=== PATIENT | female | born 1935 | race Caucasian/White ===

== ENCOUNTER → 2018-02-14 | Outpatient (CLI) | payer MEDICARE ==
[~2018-02-14] MED LIST: ASCO-96 PO; ATEN25TA PO; ATEN50TA41 HOMEMEDPO; BACL-19 PO; BENA10TA2 PO; BENA20TA2 HOMEMEDPO; BENA20TA2 PO; BISA10SU65 PR; CALC-171 PO; DOCU-131 PO; GARL10002 PO; HYDR-3237 PO; HYDR12.53 HOMEMEDPO; HYDR12.53 PO; HYDR12.58 PO; IBUP-1223 PO; LACT1CAP4 PO; LEVO25TA2 HOMEMEDPO; LEVO25TA4 PO; LEVO50TA5 PO; TRAM50TA2 PO; VITAMIN B12 PO
[2018-02-14 13:00] LABS: MEAN CORPUSCULAR HEMOGLOBIN 32.2 pg (27.0-34.8); MEAN CORPUSCULAR HGB CONC 34.6 g/dL (32.4-35.8); MEAN CORPUSCULAR VOLUME 93.1 fL (80-100); MEAN PLATELET VOLUME 8.9 fL (7.4-10.4); PLATELET COUNT 165 x10^3/uL (130-400); RED BLOOD COUNT 4.26 x10^6/uL (3.82-5.3)
[2018-02-14 13:03] LABS: INTERNATIONAL NORMALIZED RATIO 0.97 (0.93-1.1)
[2018-02-14 13:08] LABS: ALANINE AMINOTRANSFERASE 15 U/L (12-78); ALBUMIN 4.2 g/dL (3.4-5.0); ANION GAP 9 mmol/L (5-15); CHLORIDE 104 mmol/L (98-107)
[2018-02-14 13:10] LABS: ALKALINE PHOSPHATASE 50 U/L (45-117); BILIRUBIN,TOTAL 0.4 mg/dL (0.2-1.0); TOTAL PROTEIN 7.6 g/dL (6.4-8.2)
[2018-02-14 13:54] LABS: HEMOGLOBIN A1C 5.6 % (4.2-6.3)
[2018-02-14 14:04] LABS: MD YES
[2018-02-14 14:06] LABS: BAND#(MANUAL) 0.06 x10^3/uL; BANDS%(MANUAL) 1 % (0-7); LYMPH#(MANUAL) 1.79 x10^3/uL (1-3.4); LYMPHS% (MANUAL) 32 % (22-44); MONOS#(MANUAL) 0.17 x10^3/uL (0.3-2.7); MONOS% (MANUAL) 3 % (2-9); SEG#(MANUAL) 3.58 x10^3/uL (1.8-6.8); SEGS% (MANUAL) 64 % (42-75)
[2018-02-14 14:07] LABS: <PLATELET ESTIMATE> ADEQUATE; <PLT MORPHOLOGY> NORMAL PLT MORPH; <RBC MORPHOLOGY> NORMAL
== END | disposition home or self-care (01) ==
LOC: STAR 11:16
PROVIDERS: ATTEND Orthopaedic Surgery
DX: Z01.818 Encounter for other preprocedural examination (principal); M16.11 Unilateral primary osteoarthritis, right hip; R94.31 Abnormal electrocardiogram [ECG] [EKG]
CPT/HCPCS: 36415; 80053; 83036; 85025; 85610; 85730; 87081; 93005

== ENCOUNTER 2018-02-24 09:08 | Inpatient (IN) | payer MEDICARE ==
[2018-02-14 11:51] VITALS: BP 143/81
[~2018-02-24] VITALS: Ht 152.4 cm; Wt 62.1 kg
[~2018-02-24 09:08] MED LIST changes: +EPINEPHRINE 1 MG/ML, 1ML ONE; +KETOROLAC 60 MG/2 ML ONE; +ROPIvacaine/PF 0.5%, 20 ML ONE; +SODIUM CHLORIDE 0.9% 100 ML ONE; +TRANEXAMIC ACID 100 MG/ML, 10ML ONE
[2018-02-24] MEDS ORDERED: LACTATED RINGERS 1,000 ML IV SCH (09:20)
[2018-02-24] MEDS ORDERED: FENTANYL PF 250 MCG/5ML ONE ×2 (09:22→11:09)
[2018-02-24] MEDS ORDERED: DEXAMETHASONE 4 MG/ML, 1ML ONE (09:25)
[2018-02-24] MEDS ORDERED: ONDANSETRON 2MG/ML, 2ML ONE (09:25)
[2018-02-24] MEDS ORDERED: CEFAZOLIN 1,000 MG ONE (09:25)
[2018-02-24] MEDS ORDERED: PROPOFOL 10 MG/ML, 20ML ONE (09:25)
[2018-02-24] MEDS ORDERED: GABAPENTIN 300 MG CAPSULE PO ONE (10:00)
[2018-02-24] MEDS ORDERED: ACETAMINOPHEN 500 MG TABLET ONE (10:10)
[2018-02-24] MEDS ORDERED: GABAPENTIN 300 MG CAPSULE ONE (10:11)
[2018-02-24] MEDS ORDERED: VANCOMYCIN PER PHARMACY MC ONE (10:17)
[2018-02-24] MEDS ORDERED: ACETAMINOPHEN 650 MG/20.3 ML UDC PO PRN (10:30)
[2018-02-24] MEDS ORDERED: BISACODYL 10 MG SUPP PR PRN (10:30)
[2018-02-24] MEDS ORDERED: SCOPOLAMINE PATCH, 1.5MG PATCH.TD72 TD ONE (10:30)
[2018-02-24] MEDS ORDERED: SENNA/DOCUSATE TABLET PO PRN (10:30)
[2018-02-24] MEDS ORDERED: ONDANSETRON 2MG/ML, 2ML IV PRN (10:30)
[2018-02-24] MEDS ORDERED: HYDROcodone/APAP 5/325 TABLET PO PRN (10:30)
[2018-02-24] MEDS ORDERED: DIPHENHYDRAMINE 50 MG CAPSULE PO PRN (10:30)
[2018-02-24] MEDS ORDERED: ONDANSETRON 4 MG TABLET PO PRN (10:30)
[2018-02-24] MEDS ORDERED: ZOLPIDEM 5MG TABLET PO PRN (10:30)
[2018-02-24] MEDS ORDERED: MAGNESIUM HYDROXIDE 8%, 30ML UDC PO PRN (10:30)
[2018-02-24] MEDS ORDERED: hydrALAzine 20 MG/ML, 1ML IV PRN (11:00)
[2018-02-24] MEDS ORDERED: ACETAMINOPHEN 500 MG TABLET PO ONE (11:00)
[2018-02-24] MEDS ORDERED: morphine SULFATE 10 MG/ML, 1ML IV PRN (11:00)
[2018-02-24] MEDS ORDERED: ONDANSETRON 2MG/ML, 2ML IVPush PRN (11:00)
[2018-02-24] MEDS ORDERED: LABETALOL 5MG/ML, 20ML IV PRN (11:00)
[2018-02-24] MEDS ORDERED: VANCOMYCIN 1,100 MG in SODIUM CHLORIDE 0.9% 250 ML IV ONE (11:00)
[2018-02-24] MEDS ORDERED: HYDROcodone/APAP 7.5-325MG/15ML UDC PO PRN (11:00)
[2018-02-24] MEDS ORDERED: OXYcodone 5 MG/5 ML ORAL.SOL UDC PO PRN (11:00)
[2018-02-24] MEDS ORDERED: VANCOMYCIN 1,000 MG ONE (11:24)
[2018-02-24] MEDS: FENTANYL PF 100 MCG/2ML IV PRN ×2 (12:00→12:15)
[2018-02-24] MEDS ORDERED: FENTANYL PF 100 MCG/2ML ONE (12:01)
[2018-02-24] MEDS ORDERED: ACETAMINOPHEN 650 MG/20.3 ML UDC ONE (12:01)
[2018-02-24] MEDS ORDERED: OXYcodone 5 MG/5 ML ORAL.SOL UDC ONE (12:01)
[2018-02-24] MEDS ORDERED: LORazepam 2 MG/ML, 1ML ONE (12:37)
[2018-02-24] MEDS ORDERED: LORazepam 2 MG/ML, 1ML IV ONE (13:00)
[2018-02-24 13:35] VITALS: BP 125/57
[2018-02-24] MEDS: ASPIRIN 81 MG TABLET EC PO SCH (18:26)
[2018-02-24] MEDS: CEFAZOLIN PMX 2GM/50ML 50 ML IVPB SCH (18:27)
[2018-02-24] MEDS: NS + 20MEQ KCL 1,000 ML IV SCH (18:27)
[2018-02-24 18:50] VITALS: BP 115/54
[2018-02-24] MEDS: OXYcodone IR 5MG TABLET PO PRN (21:05)
[2018-02-24] MEDS: DOCUSATE 100 MG CAPSULE PO SCH (21:06)
[2018-02-25 00:15] VITALS: BP 94/50
[2018-02-25] MEDS: OXYcodone IR 5MG TABLET PO PRN ×6 (00:23→22:09)
[2018-02-25] MEDS: CEFAZOLIN PMX 2GM/50ML 50 ML IVPB SCH (02:48)
[2018-02-25 04:05] VITALS: BP 100/57
[2018-02-25] MEDS: LEVOTHYROXINE 25 MCG TABLET PO SCH (04:56)
[2018-02-25] MEDS ORDERED: DEXAMETHASONE 4 MG/ML, 1ML IVPush SCH (06:00)
[2018-02-25] MEDS: NS + 20MEQ KCL 1,000 ML IV SCH ×2 (06:06→19:26)
[2018-02-25] MEDS: ASPIRIN 81 MG TABLET EC PO SCH ×2 (06:35→18:10)
[2018-02-25] MEDS: ATENOLOL 25 MG TABLET PO SCH (07:00)
[2018-02-25] MEDS: BENAZEPRIL 20 MG TABLET PO SCH (07:00)
[2018-02-25] MEDS: HYDROCHLOROTHIAZIDE 12.5 MG CAPSULE PO SCH (07:00)
[2018-02-25] MEDS: DOCUSATE 100 MG CAPSULE PO SCH ×2 (09:00→20:23)
[2018-02-25 09:01] VITALS: BP 102/61
[2018-02-25 13:17] VITALS: BP 96/56
[2018-02-25 19:16] VITALS: BP 110/62
[2018-02-25] MEDS ORDERED: HYDROmorphone 2 MG/ML, 1ML ONE ×2 (19:16→23:41)
[2018-02-25] MEDS: HYDROmorphone 1 MG/ML, 1ML IV PRN ×2 (19:26→23:43)
[2018-02-26] MEDS: OXYcodone IR 5MG TABLET PO PRN ×5 (02:18→21:26)
[2018-02-26 02:21] VITALS: BP 125/45
[2018-02-26] MEDS ORDERED: HYDROmorphone 2 MG/ML, 1ML ONE (05:14)
[2018-02-26] MEDS: LEVOTHYROXINE 25 MCG TABLET PO SCH (05:17)
[2018-02-26] MEDS: HYDROmorphone 1 MG/ML, 1ML IV PRN (06:09)
[2018-02-26] MEDS: ASPIRIN 81 MG TABLET EC PO SCH ×2 (06:09→17:00)
[2018-02-26 06:38] VITALS: BP 117/64
[2018-02-26] MEDS: BENAZEPRIL 20 MG TABLET PO SCH (06:39)
[2018-02-26] MEDS: HYDROCHLOROTHIAZIDE 12.5 MG CAPSULE PO SCH (06:39)
[2018-02-26] MEDS: ATENOLOL 25 MG TABLET PO SCH (06:40)
[2018-02-26] MEDS: NS + 20MEQ KCL 1,000 ML IV SCH ×2 (06:40→20:26)
[2018-02-26 07:43] VITALS: BP 111/69
[2018-02-26] MEDS: DOCUSATE 100 MG CAPSULE PO SCH ×2 (09:49→21:26)
[2018-02-26 12:19] VITALS: BP 108/49
[2018-02-26 19:35] VITALS: BP 105/59
[2018-02-27] MEDS: OXYcodone IR 5MG TABLET PO PRN ×4 (01:38→13:38)
[2018-02-27 02:44] VITALS: BP 119/63
[2018-02-27] MEDS: LEVOTHYROXINE 25 MCG TABLET PO SCH (05:10)
[2018-02-27] MEDS: BENAZEPRIL 20 MG TABLET PO SCH (06:46)
[2018-02-27] MEDS: ASPIRIN 81 MG TABLET EC PO SCH (06:46)
[2018-02-27] MEDS: ATENOLOL 25 MG TABLET PO SCH (06:52)
[2018-02-27] MEDS: HYDROCHLOROTHIAZIDE 12.5 MG CAPSULE PO SCH (06:52)
[2018-02-27 06:59] VITALS: BP 111/68
[2018-02-27] MEDS: NS + 20MEQ KCL 1,000 ML IV SCH (08:32)
[2018-02-27] MEDS ORDERED: ASPI-621 PO (08:53)
[2018-02-27] MEDS ORDERED: ONDA4TAB7 PO (08:53)
[2018-02-27] MEDS ORDERED: MELO7.5T31 PO (08:53)
[2018-02-27] MEDS ORDERED: TRAM50TA2 PO (08:53)
[2018-02-27] MEDS ORDERED: OXYC5CAP2 PO (08:53)
[2018-02-27] MEDS: DOCUSATE 100 MG CAPSULE PO SCH (09:00)
[2018-02-27 12:30] VITALS: BP 95/54
== END 2018-02-27 15:45 | DRG 470 ==
LOC: ORIP 09:08 → 4NOR 13:24
PROVIDERS: ADMIT Orthopaedic Surgery; ATTEND Orthopaedic Surgery
PROC: 0SR906Z Replacement of Right Hip Joint with Oxidized Zirconium on Polyethylene Synthetic Substitute, Open Approach (ICD-10-PCS; principal; 2018-02-24 10:30)
DX: M16.11 Unilateral primary osteoarthritis, right hip (principal); M84.451A Pathological fracture, right femur, initial encounter for fracture; M81.0 Age-related osteoporosis without current pathological fracture; Z79.82 Long term (current) use of aspirin
CPT/HCPCS: 36415; 72170; 76001; 85014; 85018; 86850; 86900; C1713; J0171; J0690; J1100; J1170; J1885; J2405; J2704; J2795; J3010; J3370; J3480; C1776; J2060; J7120

== ENCOUNTER 2018-05-20 11:26 | Inpatient (IN) | payer MEDICARE ==
[~2018-05-20] VITALS: Ht 154.9 cm; Wt 65.4 kg
[~2018-05-20 11:26] MED LIST changes: +ASPI-621 PO; -EPINEPHRINE 1 MG/ML, 1ML ONE; -KETOROLAC 60 MG/2 ML ONE; +MELO7.5T31 PO; +ONDA4TAB7 PO; +OXYC5CAP2 PO; -ROPIvacaine/PF 0.5%, 20 ML ONE; -SODIUM CHLORIDE 0.9% 100 ML ONE; -TRANEXAMIC ACID 100 MG/ML, 10ML ONE
[2018-05-20] MEDS ORDERED: MORPHINE SULFATE 4 MG/ML, 1ML ONE ×2 (11:43→21:27)
[2018-05-20] MEDS ORDERED: MORPHINE SULFATE 4 MG/ML, 1ML IVPush PRN ×2 (12:00→20:30)
[2018-05-20] MEDS ORDERED: SODIUM CHLORIDE FLUSH 10ML SYR IVF ONE (12:00)
[2018-05-20 12:55] LABS: BASOPHILS # (AUTO) 0.01 x10^3/uL (0-0.1); BASOPHILS % (AUTO) 0 % (0-1); EOSINOPHILS # (AUTO) 0.05 x10^3/uL (0-0.4); EOSINOPHILS % (AUTO) 1 % (1-7); LYMPHOCYTES # (AUTO) 1.04 x10^3/uL (1-3.4); LYMPHOCYTES % (AUTO) 16 % (22-44); MD NO; MEAN CORPUSCULAR HEMOGLOBIN 32.1 pg (27.0-34.8); MEAN CORPUSCULAR HGB CONC 34.7 g/dL (32.4-35.8); MEAN CORPUSCULAR VOLUME 92.5 fL (80-100); MEAN PLATELET VOLUME 8.2 fL (7.4-10.4); MONOCYTES # (AUTO) 0.13 x10^3/uL (0.2-0.8); MONOCYTES % (AUTO) 2 % (2-9); NEUTROPHILS % (AUTO) 81 % (42-75); PLATELET COUNT 187 x10^3/uL (130-400); RED BLOOD COUNT 4.39 x10^6/uL (3.82-5.3); RED CELL DISTRIBUTION WIDTH 14.8 % (9.6-15.2)
[2018-05-20 13:01] LABS: INTERNATIONAL NORMALIZED RATIO 0.99 (0.93-1.1); PROTHROMBIN TIME 10.3 Seconds (9.6-11.5)
[2018-05-20 13:06] LABS: ALBUMIN 3.7 g/dL (3.4-5.0); ANION GAP 4 mmol/L (5-15); CALCIUM 9.3 mg/dL (8.5-10.1); CHLORIDE 107 mmol/L (98-107)
[2018-05-20 13:09] LABS: ALANINE AMINOTRANSFERASE 16 U/L (12-78); ALKALINE PHOSPHATASE 64 U/L (45-117); BILIRUBIN,TOTAL 0.6 mg/dL (0.2-1.0); CREATININE 1.04 mg/dL (0.55-1.02); TOTAL PROTEIN 7.2 g/dL (6.4-8.2)
[2018-05-20] MEDS ORDERED: morphine SULFATE 10 MG/ML, 1ML IVPush PRN (13:30)
[2018-05-20] MEDS ORDERED: ONDANSETRON 2MG/ML, 2ML IVPush PRN (13:30)
[2018-05-20 14:15] VITALS: BP 155/74
[2018-05-20] MEDS: CYCLOBENZAPRINE 10 MG TABLET PO SCH ×2 (14:39→23:36)
[2018-05-20] MEDS: NICOTINE 14MG/24 HR PATCH.TD24 TD SCH (14:39)
[2018-05-20] MEDS: ACETAMINOPHEN 325 MG TABLET PO SCH ×2 (14:39→19:30)
[2018-05-20] MEDS: LACTATED RINGERS 1,000 ML IV SCH (15:35)
[2018-05-20] MEDS ORDERED: LIDOCAINE-MPF 2% ,5ML ONE (16:46)
[2018-05-20] MEDS ORDERED: FENTANYL PF 250 MCG/5ML ONE (16:46)
[2018-05-20] MEDS ORDERED: SUCCINYLCHOLINE 20 MG/ML, 10ML ONE (16:46)
[2018-05-20] MEDS ORDERED: PROPOFOL 10 MG/ML, 20ML ONE (16:46)
[2018-05-20] MEDS ORDERED: ROCURONIUM 10MG/ML,5ML ONE (16:46)
[2018-05-20] MEDS ORDERED: KETAMINE 10 MG/ML, 20ML ONE (18:36)
[2018-05-20] MEDS ORDERED: GLYCOPYRROLATE 0.2MG/1ML, 5ML ONE (18:40)
[2018-05-20] MEDS ORDERED: CEFAZOLIN 1,000 MG ONE (18:40)
[2018-05-20] MEDS ORDERED: NEOSTIGMINE 1 MG/ML, 10ML ONE (18:40)
[2018-05-20] MEDS ORDERED: DEXAMETHASONE 4 MG/ML, 1ML ONE (18:40)
[2018-05-20] MEDS ORDERED: ONDANSETRON 2MG/ML, 2ML ONE (18:40)
[2018-05-20] MEDS: ENOXAPARIN 40 MG/0.4 ML SQ SCH (20:00)
[2018-05-20] MEDS ORDERED: ACETAMINOPHEN 325 MG TABLET PO PRN (20:30)
[2018-05-20] MEDS ORDERED: HALOPERIDOL 5 MG/ML IV PRN (20:30)
[2018-05-20] MEDS ORDERED: ALBUTEROL SULFATE 2.5 MG/3 ML NPPB PRN (20:30)
[2018-05-20] MEDS ORDERED: hydrALAzine 20 MG/ML, 1ML IV PRN (20:30)
[2018-05-20] MEDS ORDERED: DIAZEPAM 5 MG/ML, 2ML IVPush PRN (20:30)
[2018-05-20] MEDS ORDERED: PROMETHAZINE 25 MG/ML, 1ML IV PRN (20:30)
[2018-05-20] MEDS ORDERED: FENTANYL PF 100 MCG/2ML ONE (20:37)
[2018-05-20] MEDS: FENTANYL PF 100 MCG/2ML IV PRN ×3 (20:40→20:50)
[2018-05-20] MEDS: OXYcodone 5 MG/5 ML ORAL.SOL UDC PO PRN ×2 (20:50→21:20)
[2018-05-20] MEDS: CALCIUM/VITAMIN D3 250-125 TABLET PO SCH (21:00)
[2018-05-20] MEDS ORDERED: OXYcodone 5 MG/5 ML ORAL.SOL UDC ONE (21:26)
[2018-05-20] MEDS ORDERED: LABETALOL 5MG/ML, 20ML ONE (21:43)
[2018-05-20 22:00] VITALS: BP 131/78
[2018-05-21 00:35] VITALS: BP 122/69
[2018-05-21] MEDS: ACETAMINOPHEN 325 MG TABLET PO SCH ×4 (01:18→19:30)
[2018-05-21] MEDS ORDERED: ALBUTEROL SULFATE 2.5 MG/3 ML NPPB PRN (01:30)
[2018-05-21] MEDS: CEFAZOLIN PMX 1GM/50ML 50 ML IVPB SCH ×2 (02:39→10:36)
[2018-05-21] MEDS: OXYcodone IR 5MG TABLET PO PRN ×2 (03:13→08:19)
[2018-05-21 04:28] VITALS: BP 107/52
[2018-05-21] MEDS: LEVOTHYROXINE 25 MCG TABLET PO SCH (05:00)
[2018-05-21 05:39] LABS: BASOPHILS # (AUTO) 0.02 x10^3/uL (0-0.1); BASOPHILS % (AUTO) 0 % (0-1); EOSINOPHILS % (AUTO) 0 % (1-7); LYMPHOCYTES % (AUTO) 7 % (22-44); MD NO; MEAN CORPUSCULAR HEMOGLOBIN 31.4 pg (27.0-34.8); MEAN CORPUSCULAR HGB CONC 33.9 g/dL (32.4-35.8); MEAN CORPUSCULAR VOLUME 92.5 fL (80-100); MEAN PLATELET VOLUME 9.3 fL (7.4-10.4); MONOCYTES # (AUTO) 0.26 x10^3/uL (0.2-0.8); MONOCYTES % (AUTO) 3 % (2-9); NEUTROPHILS # (AUTO) 7.47 x10^3/uL (1.8-6.8); NEUTROPHILS % (AUTO) 90 % (42-75); PLATELET COUNT 185 x10^3/uL (130-400); RED BLOOD COUNT 3.45 x10^6/uL (3.82-5.3); RED CELL DISTRIBUTION WIDTH 15.1 % (9.6-15.2)
[2018-05-21 05:42] LABS: ANION GAP 8 mmol/L (5-15); CALCIUM 8.3 mg/dL (8.5-10.1); CHLORIDE 104 mmol/L (98-107)
[2018-05-21 05:43] LABS: CREATININE 1.11 mg/dL (0.55-1.02)
[2018-05-21] MEDS: BENAZEPRIL 20 MG TABLET PO SCH (06:25)
[2018-05-21] MEDS: ALENDRONATE 10 MG TABLET PO SCH (06:25)
[2018-05-21 06:26] VITALS: BP 108/65
[2018-05-21] MEDS: ATENOLOL 25 MG TABLET PO SCH (06:26)
[2018-05-21 08:00] VITALS: BP 130/72
[2018-05-21] MEDS: LACTOBACILLUS CHEW TABLET PO SCH (08:19)
[2018-05-21] MEDS: CALCIUM/VITAMIN D3 250-125 TABLET PO SCH ×2 (08:19→22:11)
[2018-05-21] MEDS: CYCLOBENZAPRINE 10 MG TABLET PO SCH ×3 (08:20→21:00)
[2018-05-21] MEDS: CYANOCOBALAMIN 1,000 MCG TABLET PO SCH (08:20)
[2018-05-21] MEDS: ASCORBIC ACID 500 MG TABLET PO SCH (08:20)
[2018-05-21] MEDS: MELOXICAM 15 MG TABLET PO SCH (08:20)
[2018-05-21] MEDS ORDERED: CALCIUM/VITAMIN D3 250-125 TABLET PO SCH (09:00)
[2018-05-21] MEDS ORDERED: SENNA/DOCUSATE TABLET PO SCH (09:00)
[2018-05-21] MEDS ORDERED: CEFAZOLIN PMX 1GM/50ML 50 ML ONE (10:32)
[2018-05-21] MEDS: LACTATED RINGERS 1,000 ML IV SCH (11:18)
[2018-05-21] MEDS: NICOTINE 14MG/24 HR PATCH.TD24 TD SCH (13:30)
[2018-05-21 14:00] VITALS: BP 126/80
[2018-05-21] MEDS: ENOXAPARIN 40 MG/0.4 ML SQ SCH (20:09)
[2018-05-21 20:44] VITALS: BP 100/62
[2018-05-22] MEDS: ACETAMINOPHEN 325 MG TABLET PO SCH ×4 (01:30→21:56)
[2018-05-22 01:50] VITALS: BP 103/60
[2018-05-22] MEDS: LEVOTHYROXINE 25 MCG TABLET PO SCH (04:42)
[2018-05-22 05:01] LABS: CLOSTRIDIUM DIFFICILE ANTIGEN NEGATIVE; CLOSTRIDIUM DIFFICILE TOXIN NEGATIVE (Negative)
[2018-05-22] MEDS: ALENDRONATE 10 MG TABLET PO SCH (06:33)
[2018-05-22] MEDS: BENAZEPRIL 20 MG TABLET PO SCH (07:00)
[2018-05-22] MEDS ORDERED: SENNA/DOCUSATE TABLET PO PRN (07:00)
[2018-05-22] MEDS: ATENOLOL 25 MG TABLET PO SCH (07:00)
[2018-05-22] MEDS: LACTATED RINGERS 1,000 ML IV SCH (07:10)
[2018-05-22 07:29] VITALS: BP 109/65
[2018-05-22] MEDS: ASCORBIC ACID 500 MG TABLET PO SCH (08:03)
[2018-05-22] MEDS: LACTOBACILLUS CHEW TABLET PO SCH (08:03)
[2018-05-22] MEDS: MELOXICAM 15 MG TABLET PO SCH (08:04)
[2018-05-22] MEDS: CYANOCOBALAMIN 1,000 MCG TABLET PO SCH (08:04)
[2018-05-22] MEDS: OXYcodone IR 5MG TABLET PO PRN (08:04)
[2018-05-22] MEDS: CALCIUM/VITAMIN D3 250-125 TABLET PO SCH ×2 (08:04→21:56)
[2018-05-22] MEDS: CYCLOBENZAPRINE 10 MG TABLET PO PRN (12:09)
[2018-05-22] MEDS ORDERED: CYCLOBENZAPRINE 10 MG TABLET PO PRN (12:30)
[2018-05-22 13:08] VITALS: BP 101/59
[2018-05-22] MEDS ORDERED: LOPERAMIDE 1 MG/5 ML, 10ML UDC PO PRN (15:30)
[2018-05-22 20:00] VITALS: BP 137/66
[2018-05-23 01:52] VITALS: BP 108/61
[2018-05-23] MEDS: LACTATED RINGERS 1,000 ML IV SCH (03:09)
[2018-05-23] MEDS: LEVOTHYROXINE 25 MCG TABLET PO SCH (04:41)
[2018-05-23] MEDS: ACETAMINOPHEN 325 MG TABLET PO SCH ×3 (06:06→17:55)
[2018-05-23] MEDS: ENOXAPARIN 30 MG/0.3 ML SQ SCH (06:06)
[2018-05-23] MEDS: ALENDRONATE 10 MG TABLET PO SCH (06:06)
[2018-05-23] MEDS: BENAZEPRIL 20 MG TABLET PO SCH (07:00)
[2018-05-23] MEDS: ATENOLOL 25 MG TABLET PO SCH (07:00)
[2018-05-23 07:15] VITALS: BP 115/71
[2018-05-23] MEDS: CYANOCOBALAMIN 1,000 MCG TABLET PO SCH (08:56)
[2018-05-23] MEDS: CALCIUM/VITAMIN D3 250-125 TABLET PO SCH ×2 (08:56→20:15)
[2018-05-23] MEDS: LACTOBACILLUS CHEW TABLET PO SCH (08:56)
[2018-05-23] MEDS: ASCORBIC ACID 500 MG TABLET PO SCH (08:56)
[2018-05-23] MEDS: CYCLOBENZAPRINE 10 MG TABLET PO PRN ×2 (08:57→20:15)
[2018-05-23] MEDS: MELOXICAM 15 MG TABLET PO SCH (08:57)
[2018-05-23 12:50] VITALS: BP 98/61
[2018-05-23] MEDS ORDERED: CEFTRIAXONE 1,000 MG ONE (13:50)
[2018-05-23 19:59] VITALS: BP 124/68
[2018-05-24] MEDS: LACTATED RINGERS 1,000 ML IV SCH ×2 (00:25→18:04)
[2018-05-24 03:06] VITALS: BP 117/74
[2018-05-24] MEDS: LEVOTHYROXINE 25 MCG TABLET PO SCH (05:23)
[2018-05-24] MEDS: ACETAMINOPHEN 325 MG TABLET PO SCH ×4 (06:00→18:04)
[2018-05-24] MEDS: ENOXAPARIN 30 MG/0.3 ML SQ SCH (06:30)
[2018-05-24] MEDS: ALENDRONATE 10 MG TABLET PO SCH (06:30)
[2018-05-24] MEDS: BENAZEPRIL 20 MG TABLET PO SCH (06:42)
[2018-05-24] MEDS: ATENOLOL 25 MG TABLET PO SCH (06:43)
[2018-05-24 07:20] VITALS: BP 144/70
[2018-05-24] MEDS: CYANOCOBALAMIN 1,000 MCG TABLET PO SCH (08:15)
[2018-05-24] MEDS: OXYcodone IR 5MG TABLET PO PRN (08:15)
[2018-05-24] MEDS: LACTOBACILLUS CHEW TABLET PO SCH (08:15)
[2018-05-24] MEDS: CALCIUM/VITAMIN D3 250-125 TABLET PO SCH ×2 (08:15→20:14)
[2018-05-24] MEDS: MELOXICAM 15 MG TABLET PO SCH (08:15)
[2018-05-24] MEDS: CYCLOBENZAPRINE 10 MG TABLET PO PRN (08:15)
[2018-05-24] MEDS: ASCORBIC ACID 500 MG TABLET PO SCH (08:15)
[2018-05-24 13:05] VITALS: BP 99/60
[2018-05-24 19:53] VITALS: BP 117/60
[2018-05-25] MEDS: ACETAMINOPHEN 325 MG TABLET PO SCH ×3 (00:59→13:10)
[2018-05-25 01:04] VITALS: BP 120/72
[2018-05-25] MEDS: LEVOTHYROXINE 25 MCG TABLET PO SCH (04:36)
[2018-05-25] MEDS: ALENDRONATE 10 MG TABLET PO SCH (06:31)
[2018-05-25] MEDS: BENAZEPRIL 20 MG TABLET PO SCH (06:31)
[2018-05-25] MEDS: ATENOLOL 25 MG TABLET PO SCH (06:32)
[2018-05-25] MEDS: ENOXAPARIN 30 MG/0.3 ML SQ SCH (06:32)
[2018-05-25 06:34] VITALS: BP 131/62
[2018-05-25 07:30] VITALS: BP 124/66
[2018-05-25] MEDS: LACTOBACILLUS CHEW TABLET PO SCH (09:31)
[2018-05-25] MEDS: CYANOCOBALAMIN 1,000 MCG TABLET PO SCH (09:32)
[2018-05-25] MEDS: ASCORBIC ACID 500 MG TABLET PO SCH (09:32)
[2018-05-25] MEDS: CALCIUM/VITAMIN D3 250-125 TABLET PO SCH (09:32)
[2018-05-25] MEDS: MELOXICAM 15 MG TABLET PO SCH (09:34)
[2018-05-25] MEDS ORDERED: ALEN10TA6 PO (13:04)
[2018-05-25] MEDS ORDERED: ACET-1600 PO (13:04)
[2018-05-25] MEDS ORDERED: ENOX30SY4 SQ (13:04)
[2018-05-25 13:30] VITALS: BP 120/69
[2018-05-25] MEDS: LACTATED RINGERS 1,000 ML IV SCH (13:30)
== END 2018-05-25 16:50 | DRG 481 ==
LOC: ED 12:40 → EDIP 13:04 → 4NOR 13:55
PROVIDERS: ADMIT Hospitalist; ATTEND Hospitalist
PROC: 0QS804Z Reposition Right Femoral Shaft with Internal Fixation Device, Open Approach (ICD-10-PCS; principal; 2018-05-20 17:30)
DX: S72.402A Unspecified fracture of lower end of left femur, initial encounter for closed fracture (principal); M97.01XA Periprosthetic fracture around internal prosthetic right hip joint, initial encounter; Z72.0 Tobacco use; W01.0XXA Fall on same level from slipping, tripping and stumbling without subsequent striking against object, initial encounter; Z96.641 Presence of right artificial hip joint; E03.9 Hypothyroidism, unspecified; M19.90 Unspecified osteoarthritis, unspecified site; F64.9 Gender identity disorder, unspecified; I10 Essential (primary) hypertension; Z71.6 Tobacco abuse counseling; Y92.009 Unspecified place in unspecified non-institutional (private) residence as the place of occurrence of the external cause; Z90.710 Acquired absence of both cervix and uterus; Z80.9 Family history of malignant neoplasm, unspecified; Y93.89 Activity, other specified
CPT/HCPCS: 36415; 71045; 76001; 80048; 80053; 85025; 85610; 86850; 86900; 87324; 93005; 99285; C1713; J0690; J0696; J1100; J1650; J2405; J2704; J2710; J3010; J3360; J3490; J0330; J2270; J7120